=== PATIENT | female | born 1985 | race Hispanic/Latino ===

== ENCOUNTER 2020-05-08 11:08 | Emergency (ER) | payer OTHER, SELFPAY ==
[2020-05-09 14:46] LABS: SARS-CoV-2 N Gene Positive; SARS-CoV-2 orf1ab Positive
[2020-05-09 14:47] LABS: SARS-CoV-2 MS2 Positive; SARS-CoV-2 S Gene Positive
== END 2020-05-08 11:36 | disposition home or self-care (01) ==
LOC: NAV ERS 11:08
DX: U07.1 COVID-19 (principal); J02.9 Acute pharyngitis, unspecified
CPT/HCPCS: 87635; 99283; U0003

== ENCOUNTER 2020-05-22 11:22 | Emergency (ER) | payer SELFPAY ==
[2020-05-23 14:32] LABS: SARS-CoV-2 MS2 Positive; SARS-CoV-2 N Gene Positive; SARS-CoV-2 S Gene Negative; SARS-CoV-2 orf1ab Positive
== END 2020-05-22 12:01 | disposition home or self-care (01) ==
LOC: NAV ERS 11:22
DX: U07.1 COVID-19 (principal)
CPT/HCPCS: 87635; 99283; U0003

== ENCOUNTER 2021-07-07 20:26 | Emergency (ER) | payer OTHER, SELFPAY ==
[2021-07-07 22:17] LABS: #Basophils 0.1 thou/uL (0.0-0.2); #Eosinphils 0.1 thou/uL (0.0-0.7); #Lymphocytes 2.7 thou/uL (1.20-3.40); #Monocytes 0.6 thou/uL (0.11-0.59); %Eosinophils 1.8 % (0.0-10.0); %Lymphocytes 35.9 % (21.0-51.0); %Monocytes 7.9 % (0.0-10.0); %Neutrophils 53.5 % (42.0-75.0); Hemoglobin 11.7 g/dL (12.0-16.0); Mean Corpuscular HGB CONC 32.8 g/dL (32.0-36.0); Mean Corpuscular Hemoglobin 29.7 pg (27.0-31.0); Mean Corpuscular Volume 90.5 fL (78.0-98.0); Mean Platelet Volume 6.9 fL (7.4-10.4); Platelet Count 394 thou/uL (130-400); RBC Distribution Width 12.8 % (11.5-14.5); Red Blood Cell (RBC) Count 3.93 mill/uL (4.20-5.40); White Blood Cell (WBC) Count 7.5 thou/uL (4.8-10.8)
[2021-07-07 22:33] LABS: ALT (SGPT) 15 U/L (8-55); AST (SGOT) 14 U/L (5-34); Albumin 3.4 g/dL (3.5-5.0); Alkaline Phosphatase 95 U/L (40-110); Anion Gap 12 mmol/L (10-20); BUN (Urea Nitrogen) 8 mg/dL (7.0-18.7); Bilirubin, Total 0.2 mg/dL (0.2-1.2); Calc. Creatinine Clearance 0 mL/min (70-130); Calcium 8.9 mg/dL (7.8-10.44); Carbon Dioxide 27 mmol/L (22-29); Chloride 104 mmol/L (98-107); Globulin 3.3 g/dL (2.4-3.5); Glucose 100 mg/dL (70-105); Potassium 3.9 mmol/L (3.5-5.1); Protein, Total 6.7 g/dL (6.0-8.3); Sodium 139 mmol/L (136-145)
[2021-07-07 22:56] LABS: BHCG - Serum Negative (NEGATIVE); Pregs Control Bar Appear? YES (CONTROL BAR)
[2021-07-08 19:54] LABS: SARS-CoV-2 PCR by NAA Not Detected (NotDetected)
== END 2021-07-08 00:30 | disposition home or self-care (01) ==
LOC: NAV ERS 20:26
DX: D64.9 Anemia, unspecified (principal); R06.00 Dyspnea, unspecified; Z20.822 Contact with and (suspected) exposure to COVID-19
CPT/HCPCS: 71045; 71275; 80053; 84484; 84703; 85025; 85379; 93005; U0003; U0005